=== PATIENT | female | born 1940 | race Caucasian/White ===

== ENCOUNTER 2017-06-10 15:57 | Inpatient (IN) ==
[2017-06-10] MEDS ORDERED: Ondansetron 4 MG/2 ML VIAL IVP ONE ×2 (16:15→20:35)
[2017-06-10] MEDS ORDERED: Ondansetron 4 MG/2 ML VIAL ONE (16:15)
--- NOTE | 2017-06-10 16:52 | Emergency Department Note ---
Disposition Clinical Impression: Colitis Sepsis Qualifiers: Sepsis type: sepsis due to unspecified organism Qualified Code(s): A41.9 - Sepsis, unspecified organism Disposition: Admitted As Inpatient Condition: Critical Referrals: NONE,PCP [Primary Care Provider] - Forms: ED Satisfaction Letter Time of Disposition: 23:27 General Adult HPI - General Chief complaint: ED Syncope Stated complaint: Syncope,Vomiting Time Seen by Provider: 06/10/17 16:10 Source: patient, EMS Mode of arrival: EMS Limitations: no limitations Nursing Notes Reviewed: Yes Vital Signs Reviewed: Yes - History of Present Illness HPI Narrative: Patient is a 76-year-old female with a past medical history of stomach cancer requiring gastrectomy, diabetes, hypertension and renal disease presenting to the department for syncopal episode with unresponsiveness that happened prior to arrival to the ED. Patient was shopping at [employer] and she just got done having dinner at [employer] when she started having nausea, vomiting and abdominal pain. Within that timeframe of nausea and vomiting which was the food that she just eaten, she had a syncopal episode where she became unresponsive and should EMS was called and the patient was brought here. Most of the history was obtained from the patient's he does have a baseline dementia, and the patient herself was able to answer some of my questions on arrival. Her states that the patient has done this multiple times in the past and does not know why this happens. At this time the patient is mainly complaining of nausea, vomiting and lower abdominal pain. Pain Scale: 0 - Related Data Home Medications Medication Instructions Recorded Confirmed Amlodipine Besylate 10 mg PO DAILY 06/10/17 06/10/17 Aspirin Enteric Coated [Aspirin EC] 81 mg PO DAILY 06/10/17 06/10/17 Atorvastatin [Lipitor] 40 mg PO HS 06/10/17 06/10/17 Carvedilol [Carvedilol] 12.5 mg PO BID 06/10/17 06/10/17 Glucosamine/D3/Boswellia Estephanie 1 each PO DAILY 06/10/17 06/10/17 [Osteo Bi-Flex Tablet] Lisinopril/Hydrochlorothiazide 1 each PO DAILY 06/10/17 06/10/17 [Zestoretic 10-12.5 mg Tablet] Omeprazole [PriLOSEC] 20 mg PO DAILY 06/10/17 06/10/17 Repaglinide [Prandin] 1 mg PO BID 06/10/17 06/10/17 Tizanidine HCl [Tizanidine HCl] 2 mg PO TID PRN 06/10/17 06/10/17 Tramadol HCl [Ultram] 50 mg PO QID PRN 06/10/17 06/10/17 Allergies Allergy/AdvReac Type Severity Reaction Status Date / Time sitagliptin [From Juluv] Allergy See Verified 06/10/17 18:22 Comments Review of Systems: Constitutional: No fever Vision: No blurred vision ENT: No rhinorrhea Respiratory: No cough Cardiac: No chest pain Allergic: No allergies : No dysuria GI: No blood in stool, no diarrhea. Positive for nausea and vomiting Hematologic: No bruising Dermatologic: No skin rash Musculoskeletal: No pain in the extremities Neuro: No numbness of the extremities All systems ED: reviewed and negative except as stated. Review of Systems: As Per HPI Past Medical History - Past Medical History Attestation: Yes The following information was validated with the patient. Medical history: Reports: cancer, diabetes, hypertension, renal disease Psychiatric history: Reports: no psych history - Social History Smoking Status: Former smoker Alcohol use: Reports: none Drug use: Reports: none Physical Exam CONSTITUTIONAL: Ill-appearing; A&O X3, in mild apparent distress. HEAD: Normocephalic; atraumatic. No delgado sign, raccoon eyes or evidence of CSF drainage EYES: PERRL, EOMI, no scleral icterus EARS: No hemotympanum or TM rupture, no otorrhea NECK: No tracheal deviation, JVD, or hematoma. Palpation of the posterior cervical spine reveals no tenderness NOSE: The nose is normal in appearance without rhinorrhea, epistaxis, or septal hematoma. MOUTH: Normal with intact dentition CHEST: no chest tenderness with palpation RESP: Normal chest excursion with respiration, no paradoxical motion, subcutaneous emphysema. The breath sounds are clear and equal bilaterally CARD: bradycardic, regular rhythm, without murmurs, rub or gallop ABD: No distention, ecchymosis, abrasions. Non-tender, soft, without rigidity , rebound or guarding PELVIS: No laxity or tenderness with palpation or compression EXT: Good ROM without tenderness, deformity. Pulses 2+ in 4 extremities SKIN: Normal for age and race; warm and dry; no apparent lesions, not pale or diaphoretic - General Limitations: no limitations General appearance: alert Course Course Narrative: Patient is a 76-year-old female with a past medical history of stomach cancer status post gastrectomy, renal disease, and history of syncopal episodes similar to presenting by squad. On arrival patient's vitals showed HR71, RR18, BP 106/59 and afebril satting at 94% on RA. Patient was noted to be unresponsive by squad however on arrival the patient is arousable and she is able to answer my questions. Patient is unable to give me all the information of the incident that happened today having active nausea and vomiting on exam. Plan for this patient is to do imaging of her head her back or abdomen and her chest to rule out any trauma or injuries, pulmonary embolisms, abdominal etiologies for the patient's symptoms. Also ordered lab work including cardiac labs and abdominal labs. Plan is to treat the patient with normal saline for blood pressure support. I also ordered stool cultures due to her diarrhea, however she denies any recent antibiotic use or hospitalizations. - Reevaluation(s) Reevaluation #1: Patient blood pressure was 70/50's recheck showed 97/59. Patient remains alert, denies any pain. She had two episodes of diarrhea that were nonbloody. States she is cold. Heading to CT now. Time: 17:57 Reevaluation #2: Patient's blood pressure drops to 90s/70 and comes back up to 100's/70's. Unsure if this is due to the patient's blood pressure cuff for her due to her being symptomatic, plan as a starter on 2 L of normal saline bolus. I also ordered blood cultures and urine cultures. I also added on antibiotics broad- spectrum coverage. I do not think the patient is septic. I am waiting for imaging to return to determine the cause of her symptoms. However, I will be preemptive and start the sepsis workup. Patient's lactate was also found to be 5.0. Vancomycin and zosyn were started. Time: 18:51 Reevaluation #3: Patient is having bloody bowel movements at this time. Calling radiology for CT read. Time: 20:32 Additional Reevaluation(s): Surgeon is at bedside.Case with the surgeon. He states that he is not convinced that this is ischemic colitis at this time. He states he likes admit the patient to ICU, trend lactates and continue antibiotic therapy for what appears to be infectious colitis. Other evaluations of the patient she does appear to be improving symptomatically. She still having diarrhea, however she sitting up in bed she is alert and oriented 3 she is feeling improved. I discussed with her the plan to admit her to the hospital for further treatment and evaluation and she agrees with this plan. Vital Signs Temperature 97.5 F L 06/10/17 15:59 Pulse Rate 71 06/10/17 15:59 Respiratory Rate 18 06/10/17 15:59 Blood Pressure 106/59 06/10/17 15:59 O2 Sat by Pulse Oximetry 94 06/10/17 15:59 Temperature 97.5 F L 06/10/17 15:59 Pulse Rate 53 06/10/17 23:18 Respiratory Rate 18 06/10/17 23:18 Blood Pressure 100/60 06/10/17 23:18 O2 Sat by Pulse Oximetry 96 06/10/17 23:18 Oxygen Delivery Oxygen Delivery Nasal Cannula Medical Decision Making - Medical Records Medical records reviewed: Yes I reviewed the patient's medical records. - Lab Data Lab results reviewed: Yes I reviewed the patient's lab results. Result diagrams: 06/10/17 16:35 06/10/17 16:35 Lab Results 06/10/17 06/10/17 06/10/17 Range/Units 16:07 16:35 16:35 WBC 11.2 H (4.3-11.1) K/mcL RBC 4.51 (3.82-4.97) M/mcL Hgb 13.5 (11.5-15.4) g/dL Hct 39.7 (35.3-44.9) % MCV 88.0 (83.0-100.0) fL MCH 29.9 (28.0-33.3) pg MCHC 34.0 (31.6-35.5) g/dL RDW 12.2 (11.5-14.5) % Plt Count 165 (140-400) K/mcL MPV 10.0 (9.4-12.4) fL Immature Gran % 0.6 (0-4) % Seg Neutrophils % 63.5 % Lymphocytes % 31.2 % Monocytes % 2.3 % Eosinophils % 2.0 % Basophils % 0.4 % Neutrophils # 7.1 (1.6-8.9) K/mcL Lymphocytes # 3.5 (0.6-4.6) K/mcL Monocytes # 0.3 (0.0-1.3) K/mcL Eosinophils # 0.2 (0.0-0.6) K/mcL Basophils # 0.0 (0.0-0.2) K/mcL Sodium 135 L (136-145) mEq/L Potassium 4.1 (3.5-4.5) mEq/L Chloride 103 (98-109) mEq/L Carbon Dioxide 18 L (19-29) mEq/L BUN 29 H (7-20) mg/dL Creatinine 1.52 H (0.57-1.11) mg/dL Est GFR ( Amer) 40 L (> 60) Est GFR (Non-Af Amer) 33 L (> 60) BUN/Creatinine Ratio 19 (6-26) Glucose 233 H (70-99) mg/dL POC Glucose 257 H (58-89) Calculated Osmolality 293 (280-300) Lactic Acid (0.5-2.2) mmol/L Calcium 8.9 (8.6-10.8) mg/dL Total Bilirubin 0.3 (0.2-1.2) mg/dL AST 19 (5-34) Units/L ALT 11 (0-55) Units/L Alkaline Phosphatase 91 (38-126) Units/L Troponin I (0-0.03) ng/mL Serum Total Protein 6.4 (6.0-8.3) g/dL Albumin 3.3 L (3.5-5.0) g/dL Globulin 3.1 (2.4-3.5) g/dL Albumin/Globulin Ratio 1.1 (1.1-2.2) Lipase 79 H (8-78) Units/L Urine Color (Yellow) Urine Clarity (Clear) Urine pH (5.0-8.0) pH Units Ur Specific [place] (1.010-1.025) Urine Protein (Neg-Trace) mg/dL Urine Glucose (UA) (Normal) mg/dL Urine Ketones (Negative) mg/dL Urine Blood (Negative) Urine Nitrite (Negative) Urine Bilirubin (Negative) Urine Urobilinogen (Normal) mg/dL Ur Leukocyte Esterase (Negative) Specimen Rejected Blood Type Antibody Screen 06/10/17 06/10/17 06/10/17 Range/Units 16:35 17:05 18:00 WBC (4.3-11.1) K/mcL RBC (3.82-4.97) M/mcL Hgb (11.5-15.4) g/dL Hct (35.3-44.9) % MCV (83.0-100.0) fL MCH (28.0-33.3) pg MCHC (31.6-35.5) g/dL RDW (11.5-14.5) % Plt Count (140-400) K/mcL MPV (9.4-12.4) fL Immature Gran % (0-4) % Seg Neutrophils % % Lymphocytes % % Monocytes % % Eosinophils % % Basophils % % Neutrophils # (1.6-8.9) K/mcL Lymphocytes # (0.6-4.6) K/mcL Monocytes # (0.0-1.3) K/mcL Eosinophils # (0.0-0.6) K/mcL Basophils # (0.0-0.2) K/mcL Sodium (136-145) mEq/L Potassium (3.5-4.5) mEq/L Chloride (98-109) mEq/L Carbon Dioxide (19-29) mEq/L BUN (7-20) mg/dL Creatinine (0.57-1.11) mg/dL Est GFR ( Amer) (> 60) Est GFR (Non-Af Amer) (> 60) BUN/Creatinine Ratio (6-26) Glucose (70-99) mg/dL POC Glucose (58-89) Calculated Osmolality (280-300) Lactic Acid (0.5-2.2) mmol/L Calcium (8.6-10.8) mg/dL Total Bilirubin (0.2-1.2) mg/dL AST (5-34) Units/L ALT (0-55) Units/L Alkaline Phosphatase (38-126) Units/L Troponin I 0.00 (0-0.03) ng/mL Serum Total Protein (6.0-8.3) g/dL Albumin (3.5-5.0) g/dL Globulin (2.4-3.5) g/dL Albumin/Globulin Ratio (1.1-2.2) Lipase (8-78) Units/L Urine Color Yellow (Yellow) Urine Clarity Cloudy A (Clear) Urine pH 7.0 (5.0-8.0) pH Units Ur Specific [place] 1.022 (1.010-1.025) Urine Protein Negative (Neg-Trace) mg/dL Urine Glucose (UA) Normal (Normal) mg/dL Urine Ketones Negative (Negative) mg/dL Urine Blood Negative (Negative) Urine Nitrite Negative (Negative) Urine Bilirubin Small H (Negative) Urine Urobilinogen Normal (Normal) mg/dL Ur Leukocyte Esterase Moderate H (Negative) Specimen Rejected Not Liquid Blood Type Antibody Screen 06/10/17 06/10/17 06/10/17 Range/Units 18:15 20:47 21:09 WBC (4.3-11.1) K/mcL RBC (3.82-4.97) M/mcL Hgb (11.5-15.4) g/dL Hct (35.3-44.9) % MCV (83.0-100.0) fL MCH (28.0-33.3) pg MCHC (31.6-35.5) g/dL RDW (11.5-14.5) % Plt Count (140-400) K/mcL MPV (9.4-12.4) fL Immature Gran % (0-4) % Seg Neutrophils % % Lymphocytes % % Monocytes % % Eosinophils % % Basophils % % Neutrophils # (1.6-8.9) K/mcL Lymphocytes # (0.6-4.6) K/mcL Monocytes # (0.0-1.3) K/mcL Eosinophils # (0.0-0.6) K/mcL Basophils # (0.0-0.2) K/mcL Sodium (136-145) mEq/L Potassium (3.5-4.5) mEq/L Chloride (98-109) mEq/L Carbon Dioxide (19-29) mEq/L BUN (7-20) mg/dL Creatinine (0.57-1.11) mg/dL Est GFR ( Amer) (> 60) Est GFR (Non-Af Amer) (> 60) BUN/Creatinine Ratio (6-26) Glucose (70-99) mg/dL POC Glucose (58-89) Calculated Osmolality (280-300) Lactic Acid 5.0 H* 4.1 H* (0.5-2.2) mmol/L Calcium (8.6-10.8) mg/dL Total Bilirubin (0.2-1.2) mg/dL AST (5-34) Units/L ALT (0-55) Units/L Alkaline Phosphatase (38-126) Units/L Troponin I (0-0.03) ng/mL Serum Total Protein (6.0-8.3) g/dL Albumin (3.5-5.0) g/dL Globulin (2.4-3.5) g/dL Albumin/Globulin Ratio (1.1-2.2) Lipase (8-78) Units/L Urine Color (Yellow) Urine Clarity (Clear) Urine pH (5.0-8.0) pH Units Ur Specific [place] (1.010-1.025) Urine Protein (Neg-Trace) mg/dL Urine Glucose (UA) (Normal) mg/dL Urine Ketones (Negative) mg/dL Urine Blood (Negative) Urine Nitrite (Negative) Urine Bilirubin (Negative) Urine Urobilinogen (Normal) mg/dL Ur Leukocyte Esterase (Negative) Specimen Rejected Blood Type B POSITIVE Antibody Screen NEGATIVE - Radiology Data Radiology results reviewed: Yes I reviewed the patient's radiology results. Abdomen/Pelvis CTA 06/10/17 16:15 IMPRESSION: There is atherosclerotic disease involving the thoracic and abdominal/pelvic aorta with no evidence of dissection. There is mild ectasia of the infrarenal abdominal aorta. No acute arterial injury. There is a low-attenuation likely cystic nodule of the left lobe of the thyroid measuring up to 5.6 cm with substernal extension. Mural thickening involving the distal transverse colon, splenic flexure, descending colon and rectosigmoid colon consistent with a nonspecific colitis. Ischemic colitis should be considered. Clinical correlation is recommended. Managing Incidental Thyroid Nodule Detected at CT or MRI or US1. Further evaluation by thyroid Ultrasound recommended for these incidental nodules:Patient Age 18 years or less - Any nodule.Patient Age 19-34 years old - Nodule 1 cm in size or greaterPatient Age 35 years or more - Nodule 1.5 cm in size or greater2. Follow up thyroid ultrasound also recommend in these scenarios-Solitary nodule with high risk imaging features (locally invasive nodule or suspicious lymph nodes)-Any nodule in a heterogeneous enlarged thyroid gland3. NO further imaging is recommended in the following scenarios-No f/u imaging is recommended for ITNs not meeting the above criteria.-No US or f/u recommended for ITNs without high risk features in pts. with limited life expectancy or significant co-morbidities, unless clinically warranted.Note: These recommendations do not apply to pts. w/ increased risk for thyroid cancer or pts. with symptomatic thyroid disease. Recomm endations for f/u of Incidental Thyroid Nodules (ITN) found on CT, MR, NM and Extrathyroidal US are based upon the ACR white paper and [employer]ada 3-tiered system for managing ITNs:J Am Cora Radiol. 2015 Aug;12(2): 143-50 D/ / Hussein Holcomb MD / Hussein Holcomb MD Interpreting Provider: Hussein Holcomb MD Cervical Spine CT 06/10/17 16:15 IMPRESSION: No acute abnormality of the cervical spine. Advanced multilevel degenerative disc disease, most pronounced from C4-C6 with areas severe left and moderate to severe right foraminal narrowing. Mild canal stenosis at C5-C6. Marked enlargement of the left thyroid lobe. RECOMMENDATIONS: Managing Incidental Thyroid Nodule Detected at CT or MRI or US 1. Further evaluation by thyroid Ultrasound recommended for these incidental nodules: Patient Age 18 years or less - Any nodule. Patient Age 19-34 years old - Nodule 1 cm in size or greater Patient Age 35 years or more - Nodule 1.5 cm in size or greater 2. Follow up thyroid ultrasound also recommend in these scenarios -Solitary nodule with high risk imaging features (locally invasive nodule or suspicious lymph nodes) -Any nodule in a heterogeneous enlarged thyroid gland 3. NO further imaging is recommended in the following scenarios -No f/u imaging is recommended for ITNs not meeting the above criteria. -No US or f/u recommended for ITNs without high risk features in pts. with limited life expectancy or significant co-morbidities, unless clinically warranted. Note: These recommendations do not apply to pts. w/ increased risk for thyroid cancer or pts. with symptomatic thyroid disease. Recommendations for f/u of Incidental Thyroid Nodules (ITN) found on CT, MR, NM and Extrathyroidal US are based upon the ACR white paper and Estrada 3-tiered system for managing ITNs: J Am Cora Radiol. 2015 Aug;12(2): 143-50 D/ / 06/10/2017 21:10:24 Rogelio Herrmann / salma Interpreting Provider: Rogelio Herrmann Chest CTA 06/10/17 16:15 IMPRESSION: There is atherosclerotic disease involving the thoracic and abdominal/pelvic aorta with no evidence of dissection. There is mild ectasia of the infrarenal abdominal aorta. No acute arterial injury. There is a low-attenuation likely cystic nodule of the left lobe of the thyroid measuring up to 5.6 cm with substernal extension. Mural thickening involving the distal transverse colon, splenic flexure, descending colon and rectosigmoid colon consistent with a nonspecific colitis. Ischemic colitis should be considered. Clinical correlation is recommended. Managing Incidental Thyroid Nodule Detected at CT or MRI or US1. Further evaluation by thyroid Ultrasound recommended for these incidental nodules:Patient Age 18 years or less - Any nodule.Patient Age 19-34 years old - Nodule 1 cm in size or greaterPatient Age 35 years or more - Nodule 1.5 cm in size or greater2. Follow up thyroid ultrasound also recommend in these scenarios-Solitary nodule with high risk imaging features (locally invasive nodule or suspicious lymph nodes)-Any nodule in a heterogeneous enlarged thyroid gland3. NO further imaging is recommended in the following scenarios-No f/u imaging is recommended for ITNs not meeting the above criteria.-No US or f/u recommended for ITNs without high risk features in pts. with limited life expectancy or significant co-morbidities, unless clinically warranted.Note: These recommendations do not apply to pts. w/ increased risk for thyroid cancer or pts. with symptomatic thyroid disease. Recomm endations for f/u of Incidental Thyroid Nodules (ITN) found on CT, MR, NM and Extrathyroidal US are based upon the ACR white paper and E[employer]ada 3-tiered system for managing ITNs:J Am Cora Radiol. 2015 Aug;12(2): 143-50 D/ / Hussein Holcomb MD / Hussein Holcomb MD Interpreting Provider: Hussein Holcomb MD Head CT 06/10/17 16:15 IMPRESSION: No acute traumatic intracranial abnormality. D/ / Issac Trejo MD / Issac Trejo MD Interpreting Provider: Issac Trejo MD - EKG Data EKG #1 EKG attestation: Yes I reviewed and interpreted this EKG. EKG results narrative: EKG done at 1609 turbid by me shows sinus rhythm at a rate of 64 bpm. EKG has normal access, NH is 161, QRS is 80, QT is 406, QTc is 415 these are within normal limits. Patient is suspicious wearing leads and lead to 3 and aVF with the start of ST elevation. We will repeat EKG. EKG #2 EKG attestation: Yes I reviewed and interpreted this EKG. EKG results narrative: EKG done at 16:21 shows sinus rhythm at 60 bpm. EKG is normal axis, normal intervals, normal QT and QTC. Repeat EKG does not show any ST elevations or depressions or Q waves. No acute ischemia appreciated. This is unchanged from her acute EKG done at 16:09. Critical Care Time Attestation: I spent greater than 65 minutes of critical care time resuscitating this acutely ill patient suffering from intermittent hypotension requiring IV fluid resuscitation as well as possible sepsis versus ischemic colitis. Patient required extensive bedside monitoring and intervention. This was excluding billable procedures. Attestation Statement - Attestation Attestation: I examined this patient and my medical decision-making was reviewed with the Resident Physician. I agree with the documented findings, disposition and treatment plan as described except to the extent set forth below. Possible ischemic versus infectious colitis. Multiple bowel movements with gross hematochezia. Patient has intermittent and labile blood pressures. They did respond to IV fluid resuscitation. Lactate improved with IV fluids however not as well as I would expect. Emergent surgical consultation available at bedside. No operative intervention at this time. We will continue to trend lactate, and initiate antibiotic therapy for possible infectious causes., Admitted to intensive care unit for monitoring of blood pressure. Discussed case with family member. Will admit for further evaluation to intensive care unit.
[2017-06-10 16:54] LABS: Basophils % 0.4 %; Eosinophils # 0.2 K/mcL (0.0-0.6); Hematocrit 39.7 % (35.3-44.9); Hemoglobin 13.5 g/dL (11.5-15.4); Immature Granulocytes % 0.6 % (0-4); Lymphocytes # 3.5 K/mcL (0.6-4.6); Lymphocytes % 31.2 %; Mean Corpuscular Hemoglobin 29.9 pg (28.0-33.3); Monocytes # 0.3 K/mcL (0.0-1.3); Monocytes % 2.3 %; Neutrophils # 7.1 K/mcL (1.6-8.9); Platelet Count 165 K/mcL (140-400); Red Blood Count 4.51 M/mcL (3.82-4.97); Red Cell Distribution Width 12.2 % (11.5-14.5); Segmented Neutrophils % 63.5 %
[2017-06-10 17:08] LABS: Albumin 3.3 g/dL (3.5-5.0); Albumin/Globulin Ratio 1.1 (1.1-2.2); Calcium 8.9 mg/dL (8.6-10.8); Globulin 3.1 g/dL (2.4-3.5); Potassium 4.1 mEq/L (3.5-4.5); Total Protein 6.4 g/dL (6.0-8.3)
[2017-06-10 17:15] LABS: Bilirubin,Urine Small (Negative); Blood,Urine Negative (Negative); Clarity,Urine Cloudy (Clear); Color,Urine Yellow (Yellow); Glucose,Urine (UA) Normal (Normal); Ketones,Urine Negative (Negative); Leukocyte Esterase,Urine Moderate (Negative); Nitrite,Urine Negative (Negative); Protein,Urine Negative (Neg-Trace); Specific Gravity,Urine 1.022 (1.010-1.025); Urobilinogen,Urine Normal (Normal)
[2017-06-10 17:18] LABS: Bilirubin,Total 0.3 mg/dL (0.2-1.2)
[2017-06-10] MEDS ORDERED: 0.9 % Sodium Chloride 2,000 ML ONE (17:42)
[2017-06-10] MEDS ORDERED: 0.9 % Sodium Chloride 1,000 ML IVC ONE ×2 (17:42→17:43)
[2017-06-10] MEDS ORDERED: Piperacillin/Tazobactam 3.375 GM in D5% in Water 50 ML IVPB ONE (18:50)
[2017-06-10] MEDS ORDERED: Vancomycin 1,000 MG in D5% in Water 250 ML IVPB ONE (18:50)
[2017-06-10] MEDS: 0.9 % Sodium Chloride 1,000 ML IVC SCH (20:39)
[2017-06-10] MEDS ORDERED: MetroNIDAZOLE 500 MG/100 ML 500 MG/100 ML BAG IVPB ONE (20:55)
[2017-06-10] MEDS ORDERED: 0.9 % Sodium Chloride 1,000 ML IVC SCH (22:00)
--- NOTE | 2017-06-11 00:20 | Internal Med History&Physical ---
<Killian Frost - Last Filed: 06/11/17 02:57> Date of Encounter: 06/11/17 Time of Encounter: 00:20 Assessment and Plan (1) Colitis Current visit: Yes Status: Acute - 5-10 episodes of grossly bloody diarrhea since onset. - CT scan showed distal transverse colon to proximal descending colon colitis. - personal injury legal assistant surgeon consult, does not believe this to be ischemic colitis. Trending lactic acid q4 hours - Most likely etiology of infectious. Will continue zosyn and flagyl. - H/H stable at 13.5/39.7. Will monitor closely. Type and screen performed in ED - C. diff toxin negative. - Pt appears to be improving since presentation. - Fluids at 125mL/hr, zofran, clear liquid diet as tolerated. - GI consulted, appreciate recommendations. (2) Renal failure Current visit: Yes Status: Acute - BUN/Cr of 29/1.52. - unknown baseline. No previous records. Pt does not admit to kidney disease. - Likely a result of chronic diabetes. Will continue with IVF, avoid nephrotoxic drugs. Qualifiers: Renal failure chronicity: unspecified chronicity Qualified Code(s): N19 - Unspecified kidney failure (3) Diabetes mellitus type 2 in nonobese Current visit: Yes Status: Chronic - Non insulin dependent. - No A1c to compare. BS in ED of 257, improved to 156. - Will give SSI. A1c pending. (4) DVT prophylaxis Current visit: Yes Status: Acute - SCDs. Holding anticoagulation in the setting of gross hematochezia. Internal Medicine - H&P: HPI Chief complaint: Bloody diarrhea Admitted From: Emergency Dept Plans for Post Hospital Care: Home History of present illness: Ms. Whyte is a 76 year old female who presents to the emergency room with a chief complaint of bloody diarrhea since this afternoon. She states she had a similar episode approximately 1 year ago and was treated at [facility] for some form of colitis which involved taking a large antibiotic pill. She states that this afternoon after eating a meal at [employer], she was walking in [place] when she began to feel some abdominal discomfort and could not make it to the restroom in time. She states that she had a large bloody bowel movement and that her memory is unclear about the surrounding events. Family was not present at bedside during time of interview. She states that she has had somewhere between 5 and 10 bowel movements since this afternoon, all of them bloody in nature. She does have a problem with chronic constipation and takes over-the- counter laxatives once a week to relieve this. She does admit to some mild abdominal pain in the epigastric and lower left quadrant, however admits that this might be due to soreness. She also admits to nausea and bilious vomiting without evidence of blood during this time, approximately 5-8 episodes. She denies any sick contacts, recent travel, strange foods. Denies any symptoms of chest pain, shortness of breath, dysuria, fevers, chills. She does admit to some diaphoresis, dizziness, confusion when these episodes come on. In the emergency department, vital signs significant for respiratory rate of 20 , intermittent hypotension. After discussion with emergency resident, he notes that patient becomes hypotensive after having a large bowel movement and then recovers spontaneously and with the use of fluids. Lab results significant for white blood cell count of 11.2, BUN/creatinine of 29/1.52, lactic acid of 5.0, lipase minimally elevated at 79. C. difficile toxin was negative. CT scans of head, chest, abdomen were performed. Showed signs of diffuse inflammation in the transverse colon extending to the splenic flexure possibly suggesting colitis. Surgery was consulted in the ED, on-call surgeon was not convinced of ischemic colitis. He recommended trending lactic acids and medical management at this time. Past Med Surg Social Fam HX - Past Medical History Medical history: cancer, diabetes, hypertension, renal disease Psychiatric history: no psych history - Social History Smoking Status: Former smoker Alcohol use: none Drug use: none Internal Medicine - H&P: Meds Amlodipine Besylate 10 mg PO DAILY 06/10/17 [History] Aspirin Enteric Coated [Aspirin EC] 81 mg PO DAILY 06/10/17 [History] Atorvastatin [Lipitor] 40 mg PO HS 06/10/17 [History] Carvedilol [Carvedilol] 12.5 mg PO BID 06/10/17 [History] Glucosamine/D3/Boswellia Estephanie [Osteo Bi-Flex Tablet] 1 each PO DAILY 06/10/17 [ History] Lisinopril/Hydrochlorothiazide [Zestoretic 10-12.5 mg Tablet] 1 each PO DAILY [History] Omeprazole [PriLOSEC] 20 mg PO DAILY 06/10/17 [History] Repaglinide [Prandin] 1 mg PO BID 06/10/17 [History] Tizanidine HCl [Tizanidine HCl] 2 mg PO TID PRN 06/10/17 [History] Tramadol HCl [Ultram] 50 mg PO QID PRN 06/10/17 [History] 3 Allergy/AdvReac Type Severity Reaction Status Date / Time sitagliptin [From Jul] Allergy See Verified 06/10/17 18:22 Comments All Systems PM: A 10-system review of systems was performed and is negative for pertinent findings except as documented above in the HPI. - Constitutional Constitutional: chills, excessive sweating, lethargy, no fatigue, no fever(s) - Cardiovascular Cardiovascular ROS IM: diaphoresis, lightheadedness, no chest pain, no dyspnea, no dyspnea on exertion, no edema, no palpitations - Respiratory Respiratory: no dyspnea, no hemoptysis, no dyspnea on exertion - Gastrointestinal Gastrointestinal: abdominal pain, change in bowel habits, change in stool character, diarrhea, hematochezia, loose stools, nausea, vomiting, no coffee ground emesis, no hematemesis, no melena - Genitourinary Genitourinary: no dysuria - Musculoskeletal Musculoskeletal ROS IM: no muscle weakness - Neurological Neurological ROS: no dizziness, no numbness, no tingling, no weakness - Constitutional Vitals: Temp Pulse Resp BP Pulse Ox 97.5 F L 53 16 107/59 96 06/10/17 15:59 06/10/17 23:18 06/11/17 00:01 06/11/17 00:01 06/10/17 23:18 Exam: Gen.: Vitals noted. No acute distress. AAOx3. Exhibiting one episode of emesis during time of interview, bilious HEENT: PERRL, oropharynx clear, Normocephalic, atraumatic, moist mucous membranes Cardiac: RRR, no murmur, +S1/S2 Pulmonary: CTA bilaterally, no wheezes, rales or rhonchi, equal chest expansion Abdomen: soft, mildly tender to palpation in epigastric and lower left quadrant , BS noted, positive rebound tenderness. No pain out of proportion to physical exam MSK: ROM intact, no joint swelling noted Extremities: no BLE edema, nontender calf, no cyanosis or clubbing Neuro: A&Ox3, moves all extremities, no focal deficits Psych: Appropriate mood and behavior Internal Med - H&P Results - Labs CBC & Chem 7: 06/11/17 00:54 06/11/17 00:54 <Lisandro Negrete T - Last Filed: 06/11/17 03:15> Date of Encounter: 06/11/17 Assessment and Plan (1) Lactic acidosis Current visit: Yes Status: Acute (2) Sepsis Current visit: Yes Status: Acute Qualifiers: Sepsis type: sepsis due to unspecified organism Qualified Code(s): A41.9 - Sepsis, unspecified organism (3) Renal failure Current visit: Yes Status: Acute Qualifiers: Renal failure chronicity: unspecified chronicity Qualified Code(s): N19 - Unspecified kidney failure (4) Colitis Current visit: Yes Status: Acute (5) Diabetes mellitus type 2 in nonobese Current visit: Yes Status: Chronic Internal Medicine - H&P: HPI History of present illness: Ms. Whyte is a 76 year old female All Systems PM: A 10-system review of systems was performed and is negative for pertinent findings except as documented above in the HPI. - Constitutional Vitals: Temp Pulse Resp BP Pulse Ox 97.2 F L 61 20 137/54 97 06/11/17 01:00 06/11/17 02:00 06/11/17 02:00 06/11/17 02:00 06/11/17 02:00 Internal Med - H&P Results - Labs CBC & Chem 7: 06/11/17 00:54 06/11/17 00:54 Labs: Short CBC 06/11/17 Range/Units 00:54 WBC 16.1 H (4.3-11.1) K/mcL Hgb 11.9 D (11.5-15.4) g/dL Hct 35.1 L (35.3-44.9) % Plt Count 216 (140-400) K/mcL Neutrophils # 14.3 H (1.6-8.9) K/mcL BMP 06/11/17 00:54 Sodium 138 Potassium 3.6 Chloride 109 Carbon Dioxide 18 L BUN 31 H Creatinine 1.30 H Glucose 184 H Calcium 8.0 L - Attending Attestation I have independently seen and examined this patient on 06/11/17 and discussed plan of care with resident physician and patient Presented with syncope and hypotension following bloody diarrhea episodes, no fever or chills, work up revealed lactic acidosis, renal failure, evidence of colitis on CT Scan, possibly infectious, abdomen is benign Blood pressure and lactic acidosis is improving with IVF hydration, No new complains at time of eval, no further bloody BM Physical exam: VSS, AAOX3, not in any form of distress,chest is CTAB, abdomen is soft and not tender, no guarding, no rebound, bowel sounds present in all quadrants, no pedal edema, labs and Imaging reviewed. Agree with IVF/antibiotics/GI eval/Monitor Hb. Renal USS. Follow urine culture. ICU monitoring till BP is stable. C.diff is negative Rest of details as in resident physician's documentation
[2017-06-11] MEDS ORDERED: Naloxone 0.4 MG/ML INJ IVP PRN (00:44)
[2017-06-11] MEDS ORDERED: Acetaminophen 325 MG TABLET PO PRN ×2 (00:44→22:39)
[2017-06-11] MEDS ORDERED: *HR* HYDROcodone/Acet 5/325 mg TABLET PO PRN ×2 (00:44→22:39)
[2017-06-11] MEDS ORDERED: Ondansetron 4 MG/2 ML VIAL IVP PRN ×2 (00:44→22:40)
[2017-06-11] MEDS ORDERED: *HR* Morphine 2 MG/ML SYRINGE IVP PRN ×2 (00:44→22:40)
[2017-06-11] MEDS ORDERED: D5% in Water 1,000 ML IVC PRN ×2 (00:45→22:38)
[2017-06-11] MEDS ORDERED: *HR* Dextrose 50 % in Water (Syg) 50 ML SYRINGE IVP PRN ×2 (00:45→22:38)
[2017-06-11] MEDS ORDERED: Dextrose Gel 15 GM PO PRN ×4 (00:45→22:38)
[2017-06-11 01:10] LABS: Basophils % 0.2 %; Eosinophils % 0.1 %; Hematocrit 35.1 % (35.3-44.9); Immature Granulocytes % 0.9 % (0-4); Mean Corpuscular HGB Conc 33.9 g/dL (31.6-35.5); Mean Corpuscular Hemoglobin 30.4 pg (28.0-33.3); Mean Corpuscular Volume 89.5 fL (83.0-100.0); Mean Platelet Volume 9.7 fL (9.4-12.4); Monocytes % 6.3 %; Platelet Count 216 K/mcL (140-400); Red Blood Count 3.92 M/mcL (3.82-4.97); Red Cell Distribution Width 12.4 % (11.5-14.5); Segmented Neutrophils % 88.5 %
[2017-06-11 01:12] LABS: Lymphocytes # 0.6 K/mcL (0.6-4.6); Neutrophils # 14.3 K/mcL (1.6-8.9)
[2017-06-11 01:13] LABS: Hemoglobin 11.9 g/dL (11.5-15.4)
[2017-06-11 01:17] LABS: Potassium 3.6 mEq/L (3.5-4.5)
[2017-06-11 01:25] LABS: INR 1.2
[2017-06-11 01:28] LABS: Activated Partial Thrombo Time 26.3 Seconds (26.0-36.0)
[2017-06-11 01:31] LABS: Platelet Estimate Normal (Normal)
[2017-06-11 01:35] LABS: Hemoglobin A1C 5.7 %
[2017-06-11] MEDS: 0.9 % Sodium Chloride 1,000 ML IVC SCH (03:14)
[2017-06-11] MEDS: MetroNIDAZOLE 500 MG/100 ML 500 MG/100 ML BAG IVPB SCH ×3 (06:04→18:54)
[2017-06-11] MEDS ORDERED: Piperacillin/Tazobactam 3.375 GM in D5% in Water 50 ML IVPB SCH (08:00)
[2017-06-11] MEDS: Insulin LISPRO 300 UNITS/3 ML VIAL SQ SCH ×3 (08:30→18:32)
--- NOTE | 2017-06-11 09:11 | Event Note ---
Date of Encounter: 06/11/17 Time of Encounter: 08:45 76-year-old female with history of hypertension, diabetes presents with multiple episodes of near syncope and syncope along with bloody diarrhea and abdominal pain. Patient seen and examined at bedside. Feels better but continues to have some abdominal pain. Improving diarrhea. Chest-S1, S2 heard, regular rate and rhythm. Abdomen is soft and nondistended, tenderness in lower abdomen and left lower quadrant. CT abdomen/pelvis shows colitis in distal transverse up to rectosigmoid colon. Labs reviewed-worsening leukocytosis, 16.1 today, initial lactic acidosis, improved today, serum creatinine 1.3, hemoglobin A1c 5.7% Syncope-likely related to dehydration, diarrhea and colitis. Continue telemetry monitoring. Troponin noted to be negative, initial EKG showed sinus rhythm. Check 2-D echocardiogram. Colitis-infectious versus ischemic versus inflammatory. Continue empiric IV antibiotics-Rocephin and Flagyl. Hold Zosyn at this time. Surgery has been consulted by ER physician, less likely ischemic colitis. Serum lactate noted to be normal today. Follow-up GI evaluation. Continue bowel rest and IV hydration. Monitor electrolytes closely.
[2017-06-11] MEDS ORDERED: 0.9 % Sodium Chloride 1,000 ML IVC SCH (09:15)
--- NOTE | 2017-06-11 09:44 | Gastroenterology Consult Note ---
<Donaldo Card - Last Filed: 06/11/17 09:56> Date of Encounter: 06/11/17 Time of Encounter: 09:22 - Assessment and plan (1) Colitis Current Visit: Yes Status: Acute Assessment and plan: 76-year-old type II diabetic with described history of recurrent hemorrhagic colitis was admitted with hematochezia, hypotension and syncopal episode. Significant laboratory work: Elevated WBC count up to 16.1, initial lactic acid 5.0 currently 1.4, presenting hemoglobin 13.5 down to 11.9 currently, BUN 31. CT of the abdomen demonstrates mural thickening involving the distal transverse colon, splenic flexure, descending colon and rectosigmoid colon consistent with nonspecific colitis. The patient presents with CT findings of colitis, hematochezia and left upper quadrant tenderness. She does complain of previous recurrent episodes over the last several years and once required hospitalization at [facility] one year ago. Of significance she also had vital demonstrating hypotension upon presentation and associated with bowel movements indicating vasovagal involvement. She also has CT findings correlating with vascular calcification. Patient be consideration for ischemic colitis involving the mucosa, given the length of time and recurrent history this also could demonstrate ulcerative colitis and less likely to be bacterial colitis given the frequency of recurrence. Plan: - Nothing by mouth - We will benefit from EGD today - Bowel prep and colonoscopy tomorrow - ESR and CRP - Continue metronidazole and ciprofloxacin. (2) Diabetes mellitus type 2 in nonobese Current Visit: Yes Status: Chronic Assessment and plan: Patient is a history of type 2 diabetes, patient states that her hemoglobin A1c was well controlled and she is currently not taking any injectable insulin. - Continue close glucose monitoring (3) Lactic acidosis Current Visit: Yes Status: Acute Assessment and plan: Lactic acidosis is resolving, likely secondary to colitis versus ischemic colitis. Lactic acid level resolving. Plan as described above. - Time Spent With Patient Total time spent is greater than 50% in coordination of care (as documented) at patient's floor/unit and/or counseling patient: GI History of Present Illness - Data of Consult Consult date: 06/11/17 Requesting Physician: Sandra Mayers MD - Consult Narrative Reason for consult: gi bleed History of present illness: Ms. Whyte is a 76 year old female type II diabetic, GERD, colon polyps, partial gastrectomy secondary to gastric cancer was brought to the hospital by EMS after fainting at [employer]. She states that she was driving back from [place] and stopped at [employer] in [facility] when she started to develop abdominal discomfort aching pain with cramping and then felt she was going to pass out. She said she last remembers sitting in a chair at [employer] and then woke up in the ambulance on the way to the hospital. She states after coming to the hospital she had several bowel movements that were bloody associated with cramping pain. She said this is not the first time she has had these episodes and that they happen fairly regularly. She last had one 8 months ago and said this has been the longest period of not having an episode of bloody diarrhea associated with vomiting which is usually green or clear in color. She has been driving her to and from cancer treatments for prostate cancer over the last 8 months. Prior to the past 8 months she was having several episodes a year where she would have bright red blood associated with abdominal cramping and nausea and vomiting. She would usually take care of these episodes at home and they would resolve without medical attention. She does state that she was at [facility] in [place] roughly one year ago with a similar episode and she was provided 10 days of oral antibiotics and discharged home. She said they called colitis. She has a history of gastric cancer with a partial gastrectomy with slow recovery of her gastric function after. She states that everything is resolved and she is able to eat without difficulty currently. She states that she has had polyps with her previous colonoscopy and that might have been 5 years ago and she was due in September but she cannot remember if she had a colonoscopy then or if her had one at that time. She does not remember when her last endoscopy was but knows that she had 1 prior to her diagnosis of gastric cancer. She does not recall any family history of gastric cancers or colon cancer or colon polyps. She is a previous smoker but quit over 27 years ago and does not drink any alcohol or do any drugs. Currently she feels back to her normal state of health denies any discomfort or pain except a little bit of tenderness on examination. She denies any previous diagnosis of ulcerative colitis Crohn's disease or inflammatory bowel diseases. She does not take any chronic medications for these episodes of recurrent colitis. Colonoscopy: maybe 5 years ago EGD: Unknown, hx gastric cancer Past Med Surg Social Fam HX - Past Medical History Medical history: cancer, diabetes, hypertension, renal disease Psychiatric history: no psych history - Past Surgical History Surgical History: cancer surgery - Social History Smoking Status: Former smoker Alcohol use: none Drug use: none - Gastrointestinal Gastrointestinal: Present: abdominal pain, change in bowel habits, constipation , diarrhea, heartburn, hematochezia, melena, nausea, vomiting. Absent: bloating , coffee ground emesis, hematemesis - Constitutional Constitutional: no anorexia, no fatigue - EENT Nose, mouth and throat: Absent: dysphagia, hoarseness - Cardiovascular Cardiovascular ROS: Absent: chest pain, irregular heart rhythm, palpitations - Respiratory Respiratory IM: Absent: cough, dyspnea, hemoptysis - Genitourinary Genitourinary: Absent: change in color - Neurological ROS Neurological GI: Present: other (Syncopal episode) - Musculoskeletal Musculoskeletal ROS GI: Absent: back pain - Integumentary Integumentary GI: Absent: jaundice, pruritis, rash - Constitutional Vitals: Temp Pulse Resp BP Pulse Ox 97.6 F 81 24 135/52 97 06/11/17 07:46 06/11/17 08:00 06/11/17 06:00 06/11/17 06:00 06/11/17 06:00 General appearance: Present: cooperative, A&O X 3, pleasant, no acute distress Exam: General: Patient alert, awake, oriented 3, interactive, in no acute distress HEENT: Normocephalic, atraumatic, oral mucosa moist, uvula midline, neck supple trachea midline no palpable lymphadenopathy, no thyromegaly. Chest: Symmetric bilateral correlating with respiratory effort, effort nonlabored. Cardiac: Regular rate and rhythm, positive S1 and S2. no bruits appreciated bilateral carotids, Radial pulses 2+ bilateral, posterior tibial and dorsal pedal pulses 2+ bilateral. Respiratory: Clear to auscultation all lung [place] Abdomen: Soft, postsurgical scar, mild tenderness to palpation of the left upper quadrant, positive bowel sounds, no palpable masses appreciated on examination Extremities: Symmetric bilateral, bilateral lower extremities without erythema or edema patient moving all 4 extremities spontaneously. Neurologic: No focal deficits appreciated on examination. Face symmetric Results - Labs CBC & Chem 7: 06/11/17 00:54 06/11/17 00:54 Labs: Last Result Calcium 8.0 mg/dL (8.6-10.8) L 06/11/17 00:54 Troponin I 0.00 ng/mL (0-0.03) 06/10/17 16:35 Entire Visit Hgb 11.9 g/dL (11.5-15.4) D 06/11/17 00:54 Hct 35.1 % (35.3-44.9) L 06/11/17 00:54 PT 13.0 Seconds (9.4-12.1) H 06/11/17 00:54 Total Bilirubin 0.3 mg/dL (0.2-1.2) 06/10/17 16:35 AST 19 Units/L (5-34) 06/10/17 16:35 ALT 11 Units/L (0-55) 06/10/17 16:35 Lipase 79 Units/L (8-78) H 06/10/17 16:35 - ABG ABG results: PT/INR, D-dimer PT 13.0 Seconds (9.4-12.1) H 06/11/17 00:54 Consult Discharge Plan - Plan Referrals: NONE,PCP [Primary Care Provider] - <Alicia Grayson - Last Filed: 06/11/17 21:48> Date of Encounter: 06/11/17 Time of Encounter: 14:00 - Time Spent With Patient Total time spent is greater than 50% in coordination of care (as documented) at patient's floor/unit and/or counseling patient: GI History of Present Illness - Data of Consult Requesting Physician: Sandra Mayers MD - Consult Narrative History of present illness: Ms. Whyte is a 76 year old female - Constitutional Vitals: Temp Pulse Resp BP Pulse Ox 99.1 F 69 16 121/48 97 06/11/17 21:38 06/11/17 21:38 06/11/17 21:38 06/11/17 21:38 06/11/17 21:38 Results - Labs CBC & Chem 7: 06/11/17 00:54 06/11/17 00:54 Labs: Last Result ESR 1 mm/hr (0-15) 06/11/17 00:54 Calcium 8.0 mg/dL (8.6-10.8) L 06/11/17 00:54 Troponin I 0.00 ng/mL (0-0.03) 06/10/17 16:35 C-Reactive Protein 10 mg/L (Less than 5) H 06/11/17 00:54 Entire Visit Hgb 11.9 g/dL (11.5-15.4) D 06/11/17 00:54 Hct 35.1 % (35.3-44.9) L 06/11/17 00:54 PT 13.0 Seconds (9.4-12.1) H 06/11/17 00:54 Total Bilirubin 0.3 mg/dL (0.2-1.2) 06/10/17 16:35 AST 19 Units/L (5-34) 06/10/17 16:35 ALT 11 Units/L (0-55) 06/10/17 16:35 Lipase 79 Units/L (8-78) H 06/10/17 16:35 - ABG ABG results: PT/INR, D-dimer PT 13.0 Seconds (9.4-12.1) H 06/11/17 00:54 - Attending Attestation I examined this patient and my medical decision-making was reviewed with the Resident Physician. I agree with the documented findings, disposition and treatment plan as described except to the extent set forth below. Pt with ischemic colitis. Cont IV abs. No colonoscopy for now. If no abd pain in am then can start clear liquid. Will consider colon as out pt in 2 months. Consider ASA daily full strength.
--- NOTE | 2017-06-11 09:50 | General Surgery Consult Note ---
Date of Encounter: 06/11/17 Time of Encounter: 22:00 Assessment and Plan (1) Ischemic colitis Current Visit: Yes Status: Acute 76F with ischemic colitis with associated LGIB likley 2/2 to low flow state (as CT confirms colitis in watershed areas) from cardiac source (priceley bradycardia) ; currenlty non septic after resuscitation in ED - NPO - IVF - abx - cardiology consult: EKG, troponins, echo; may need PPM if she remain bradycardic and symptomatic - continue aggressive resuscitaiton, trend lactate - no acute surgery at present, serial exams (2) Bradycardia Current Visit: Yes Status: Acute eval by cardiology to assess the need for a pacemaker - likley cause of low flow state, unresponsiveness and subsequent colitis in watershed areas (3) Lactic acidosis Current Visit: Yes Status: Acute see above (4) Sepsis Current Visit: Yes Status: Acute see above Qualifiers: Sepsis type: sepsis due to unspecified organism Qualified Code(s): A41.9 - Sepsis, unspecified organism History of Present Illness Consult date: 06/10/17 Reason for consult: abdominal pain (with GI bleeding) History of present illness: 76F who presents with abdominal pain and rectal bleeding after a syncopal episode. The patient is unsure how long she was unconscious for, but it was reported that she was still unresponsive when the EMT/paramedics arrived. The patient states that her pain began before she became unresponsive. She has had several episodes similar to this which the patient relates to constipation and the need for a bowel movement. The patient had a bowel movement but no resolution of her pain. Upon arrival to the ED she had repeat episodes of blood stools and continued abdominal pain. Her lactate was up to 5.0. Surgery was consulted for possible intervention Past Med Surg Social Fam HX - Past Medical History Medical history: cancer, diabetes, hypertension, renal disease Psychiatric history: no psych history - Past Surgical History Surgical History: cancer surgery - Social History Smoking Status: Former smoker Alcohol use: none Drug use: none - Additional Family History Additional family history: non contributory Medications and Allergies Amlodipine Besylate 10 mg PO DAILY 06/10/17 [History] Aspirin Enteric Coated [Aspirin EC] 81 mg PO DAILY 06/10/17 [History] Atorvastatin [Lipitor] 40 mg PO HS 06/10/17 [History] Carvedilol [Carvedilol] 12.5 mg PO BID 06/10/17 [History] Glucosamine/D3/Boswellia Estephanie [Osteo Bi-Flex Tablet] 1 each PO DAILY 06/10/17 [ History] Lisinopril/Hydrochlorothiazide [Zestoretic 10-12.5 mg Tablet] 1 each PO DAILY [History] Omeprazole [PriLOSEC] 20 mg PO DAILY 06/10/17 [History] Repaglinide [Prandin] 1 mg PO BID 06/10/17 [History] Tizanidine HCl [Tizanidine HCl] 2 mg PO TID PRN 06/10/17 [History] Tramadol HCl [Ultram] 50 mg PO QID PRN 06/10/17 [History] 3 Allergy/AdvReac Type Severity Reaction Status Date / Time [facility]agli[facility] Allergy See Verified 06/10/17 18:22 Comments Review of Systems All systems PM: A 10-system review of systems was performed and is negative for pertinent findings except as documented above in the HPI. General Surgery Exam Initial Vital Signs Temp Pulse Resp BP Pulse Ox 97.5 F L 71 18 106/59 94 06/10/17 15:59 06/10/17 15:59 06/10/17 15:59 06/10/17 15:59 06/10/17 15:59 - General physical appearance well developed, well nourished, no distress - Eyes other (no scleral icterus), normal ocular movement - ENT normocephalic - Respiratory normal expansion, normal respiratory effort, clear to auscultation - Cardiovascular Cardiovascular exam: Present: bradycardia (heart rate in the high 40s, low 50s) - Abdomen Abdomen general surgery: Present: soft, tender (mildly tender in all quadrants) - Integumentary Integumentary general surgery: Present: warm and dry - Neurologic Present: CN 2-12 grossly intact - Psychiatric Psychiatric general surgery: Present: A&Ox3 Exam Initial Vital Signs Temp Pulse Resp BP Pulse Ox 97.5 F L 71 18 106/59 94 06/10/17 15:59 06/10/17 15:59 06/10/17 15:59 06/10/17 15:59 06/10/17 15:59 Results - Labs 06/11/17 00:54 06/11/17 00:54 Abnormal lab results WBC 16.1 K/mcL (4.3-11.1) H 06/11/17 00:54 Hct 35.1 % (35.3-44.9) L 06/11/17 00:54 Neutrophils # 14.3 K/mcL (1.6-8.9) H 06/11/17 00:54 PT 13.0 Seconds (9.4-12.1) H 06/11/17 00:54 Carbon Dioxide 18 mEq/L (19-29) L 06/11/17 00:54 BUN 31 mg/dL (7-20) H 06/11/17 00:54 Creatinine 1.30 mg/dL (0.57-1.11) H 06/11/17 00:54 Est GFR ( Amer) 48 (> 60) L 06/11/17 00:54 Est GFR (Non-Af Amer) 40 (> 60) L 06/11/17 00:54 Glucose 184 mg/dL (70-99) H 06/11/17 00:54 POC Glucose 147 (58-89) H 06/11/17 07:19 Hemoglobin A1c 5.7 % (-5.6) H 06/11/17 00:54 Calcium 8.0 mg/dL (8.6-10.8) L 06/11/17 00:54 Albumin 3.3 g/dL (3.5-5.0) L 06/10/17 16:35 Lipase 79 Units/L (8-78) H 06/10/17 16:35 Urine Clarity Cloudy (Clear) A 06/10/17 17:05 Urine Bilirubin Small (Negative) H 06/10/17 17:05 Ur Leukocyte Esterase Moderate (Negative) H 06/10/17 17:05 Diabetes panel 06/11/17 06/11/17 Range/Units 00:54 00:54 Sodium 138 (136-145) mEq/L Potassium 3.6 (3.5-4.5) mEq/L Chloride 109 (98-109) mEq/L Carbon Dioxide 18 L (19-29) mEq/L BUN 31 H (7-20) mg/dL Creatinine 1.30 H (0.57-1.11) mg/dL Glucose 184 H (70-99) mg/dL Hemoglobin A1c 5.7 H ( - 5.6) % Calcium 8.0 L (8.6-10.8) mg/dL Calcium panel 06/11/17 Range/Units 00:54 Calcium 8.0 L (8.6-10.8) mg/dL Pituitary panel 06/11/17 Range/Units 00:54 Sodium 138 (136-145) mEq/L Potassium 3.6 (3.5-4.5) mEq/L Chloride 109 (98-109) mEq/L Carbon Dioxide 18 L (19-29) mEq/L BUN 31 H (7-20) mg/dL Creatinine 1.30 H (0.57-1.11) mg/dL Glucose 184 H (70-99) mg/dL Calcium 8.0 L (8.6-10.8) mg/dL Adrenal panel 06/11/17 Range/Units 00:54 Sodium 138 (136-145) mEq/L Potassium 3.6 (3.5-4.5) mEq/L Chloride 109 (98-109) mEq/L Carbon Dioxide 18 L (19-29) mEq/L BUN 31 H (7-20) mg/dL Creatinine 1.30 H (0.57-1.11) mg/dL Glucose 184 H (70-99) mg/dL Calcium 8.0 L (8.6-10.8) mg/dL All other labs normal. - Imaging CT scan - abdomen: report reviewed, image reviewed (mural thickening involving the distal transverse colon, splenic flexure, descending colon and rectosigmoid colon consistent with a nonspecific colitis.) CT scan - pelvis: report reviewed, image reviewed (mural thickening involving the distal transverse colon, splenic flexure, descending colon and rectosigmoid colon consistent with a nonspecific colitis.) Consult Discharge Plan - Plan Referrals: NONE,PCP [Primary Care Provider] -
--- NOTE | 2017-06-11 10:58 | General Surgery Progress Note ---
Date of Encounter: 06/11/17 Time of Encounter: 09:30 - Assessment and Plan (1) Ischemic colitis Current Visit: Yes Status: Acute 76F with ischemic colitis with associated LGIB likley 2/2 to low flow state (as CT confirms colitis in watershed areas) from cardiac source (likley bradycardia) ; currenlty non septic after resuscitation in ED - NPO - IVF - abx - cardiology consult: EKG, troponins, echo; may need PPM if she remain bradycardic and symptomatic - continue aggressive resuscitaiton, trend lactate - no acute surgery at present, serial exams - trend H/H - GI on board; appreciate their recommendations; (2) Bradycardia Current Visit: Yes Status: Acute resolved; bradycardia of unknown etiology, but likely cause of low flow state and subsequent unresponsiveness and colitis - still recommend cardiology evaluation (3) Lactic acidosis Current Visit: Yes Status: Acute rsolved with resuscitation (4) Sepsis Current Visit: Yes Status: Acute trend wbc; patient still with colitis and LGIB Qualifiers: Sepsis type: sepsis due to unspecified organism Qualified Code(s): A41.9 - Sepsis, unspecified organism Subjective Patient reports: no new complaints, feels better, still having pain, pain is less Objective Vital Signs - Last 8 Hours Temp Pulse Resp BP Pulse Ox 06/11/17 09:19 80 20 102/42 98 06/11/17 08:30 75 20 129/56 98 06/11/17 08:00 81 06/11/17 07:46 97.6 F 06/11/17 06:00 72 24 135/52 97 06/11/17 05:00 66 22 130/51 97 06/11/17 04:28 98.1 F 06/11/17 04:00 64 20 124/44 97 06/11/17 03:00 64 20 137/59 96 Intake and Output 06/10/17 06/11/17 06/11/17 23:59 07:59 15:59 Intake Total 1000 / 1000 20 / 20 Output Total 500 / 500 Balance 500 / 500 20 / 20 Intake: IV Fluids 950 / 950 0.9 % Sodium Chloride 1,000 ML 800 / 800 @ 125 mls/hr IVC .Q8H [facility] Rx#: [id number] Flagyl Premix 500 MG/100 ML 500 100 / 100 mg In 100 ml @ 100 mls/hr IVPB Q6HR [facility] Rx#:[id number] Zosyn 3.375 GM In Dextrose 5% ( 50 / 50 ADD-[place]) 50 ML @ 50 mls/hr IVPB ONCE ONE Rx#:[id number] Oral 50 / 50 20 / 20 Output: Urine 500 / 500 Other: Percent of Meal Consumed 0% Stool Size Moderate Stool Consistency loose Stool Characteristics Mucoid Stool Color Bright Red Blood # Bowel Movements 1 Blood Glucose* 147 147 - General physical appearance well developed, well nourished, no distress - Respiratory normal expansion, normal respiratory effort - Cardiovascular Cardiovascular exam: Present: RRR - Abdomen Abdomen: Present: soft, non tender Hernia: none - Integumentary no rash - Neurologic CN 2-12 grossly intact - Psychiatric oriented to time, oriented to person, oriented to place - Labs 06/11/17 00:54 06/11/17 00:54 Diabetes panel 06/11/17 06/11/17 Range/Units 00:54 00:54 Sodium 138 (136-145) mEq/L Potassium 3.6 (3.5-4.5) mEq/L Chloride 109 (98-109) mEq/L Carbon Dioxide 18 L (19-29) mEq/L BUN 31 H (7-20) mg/dL Creatinine 1.30 H (0.57-1.11) mg/dL Glucose 184 H (70-99) mg/dL Hemoglobin A1c 5.7 H ( - 5.6) % Calcium 8.0 L (8.6-10.8) mg/dL Calcium panel 06/11/17 Range/Units 00:54 Calcium 8.0 L (8.6-10.8) mg/dL Pituitary panel 06/11/17 Range/Units 00:54 Sodium 138 (136-145) mEq/L Potassium 3.6 (3.5-4.5) mEq/L Chloride 109 (98-109) mEq/L Carbon Dioxide 18 L (19-29) mEq/L BUN 31 H (7-20) mg/dL Creatinine 1.30 H (0.57-1.11) mg/dL Glucose 184 H (70-99) mg/dL Calcium 8.0 L (8.6-10.8) mg/dL Adrenal panel 06/11/17 Range/Units 00:54 Sodium 138 (136-145) mEq/L Potassium 3.6 (3.5-4.5) mEq/L Chloride 109 (98-109) mEq/L Carbon Dioxide 18 L (19-29) mEq/L BUN 31 H (7-20) mg/dL Creatinine 1.30 H (0.57-1.11) mg/dL Glucose 184 H (70-99) mg/dL Calcium 8.0 L (8.6-10.8) mg/dL - VTE Documentation of Mechanical Device: Intermittent pneumatic compression device Consult Discharge Plan - Plan Referrals: NONE,PCP [Primary Care Provider] -
[2017-06-11] MEDS ORDERED: cefTRIAXone 1,000 MG in Water for inj. (sterile) 10 ML IVP SCH (11:40)
--- NOTE | 2017-06-11 13:08 | Electrocardiograph Report ---
[address] [place], [place] [address] Test Date: 2017-06-10 Pat Name: Leah Whyte Department: 102 Room: [facility] Gender: F Manager Paid: Shawna : 1940 Requested By: Louis Cobb Order Number: [id number] Reading MD: Ezra Duke MD Measurements Intervals [place] Rate: 64 P: 37 GA: 161 QRS: 17 QRSD: 80 T: 68 QT: 406 QTc: 415 Interpretive Statements SINUS RHYTHM BORDERLINE INFERIOR ST ELEVATION Electronically Signed On 06-11-2017 13:07:18 EST by Ezra Duke MD
--- NOTE | 2017-06-11 13:08 | Electrocardiograph Report ---
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
[2017-06-11 23:15] LABS: Basophils % 0.1 %; Eosinophils % 0.1 %; Immature Granulocytes % 0.6 % (0-4); Lymphocytes # 1.1 K/mcL (0.6-4.6); Lymphocytes % 7.8 %; Mean Corpuscular HGB Conc 34.3 g/dL (31.6-35.5); Mean Corpuscular Hemoglobin 30.5 pg (28.0-33.3); Mean Corpuscular Volume 88.9 fL (83.0-100.0); Mean Platelet Volume 9.8 fL (9.4-12.4); Monocytes % 7.1 %; Platelet Count 182 K/mcL (140-400); Red Blood Count 3.15 M/mcL (3.82-4.97); Red Cell Distribution Width 12.7 % (11.5-14.5); Segmented Neutrophils % 84.3 %
[2017-06-11 23:17] LABS: Hemoglobin 9.6 g/dL (11.5-15.4)
[2017-06-12] MEDS: MetroNIDAZOLE 500 MG/100 ML 500 MG/100 ML BAG IVPB SCH ×4 (00:17→23:27)
[2017-06-12 04:35] LABS: Basophils % 0.2 %; Eosinophils % 0.3 %; Hematocrit 27.5 % (35.3-44.9); Hemoglobin 9.5 g/dL (11.5-15.4); Immature Granulocytes % 0.5 % (0-4); Lymphocytes # 1.4 K/mcL (0.6-4.6); Lymphocytes % 10.4 %; Mean Corpuscular HGB Conc 34.5 g/dL (31.6-35.5); Mean Corpuscular Hemoglobin 30.3 pg (28.0-33.3); Mean Corpuscular Volume 87.6 fL (83.0-100.0); Mean Platelet Volume 9.9 fL (9.4-12.4); Monocytes # 0.9 K/mcL (0.0-1.3); Monocytes % 6.5 %; Neutrophils # 10.7 K/mcL (1.6-8.9); Platelet Count 173 K/mcL (140-400); Red Blood Count 3.14 M/mcL (3.82-4.97); Red Cell Distribution Width 12.8 % (11.5-14.5); Segmented Neutrophils % 82.1 %
[2017-06-12 05:07] LABS: Platelet Estimate Normal (Normal)
[2017-06-12] MEDS: cefTRIAXone 1,000 MG in Water for inj. (sterile) 10 ML IVP SCH (08:44)
[2017-06-12] MEDS: Insulin LISPRO 300 UNITS/3 ML VIAL SQ SCH ×3 (08:44→16:27)
--- NOTE | 2017-06-12 09:07 | Gastroenterology Progress Note ---
<Donaldo Card - Last Filed: 06/12/17 10:06> Date of Encounter: 06/12/17 Time of Encounter: 09:03 - Assessment and plan (1) Colitis Status: Acute Assessment and plan: 76-year-old type II diabetic with described history of recurrent hemorrhagic colitis was admitted with hematochezia, hypotension and syncopal episode. Significant laboratory work: Elevated WBC count up to 16.1, initial lactic acid 5.0 currently 1.4, presenting hemoglobin 13.5 down to 11.9 currently, BUN 31. CT of the abdomen demonstrates mural thickening involving the distal transverse colon, splenic flexure, descending colon and rectosigmoid colon consistent with nonspecific colitis. The patient presents with CT findings of colitis, hematochezia and left upper quadrant tenderness. She does complain of previous recurrent episodes over the last several years and once required hospitalization at [facility] one year ago. Of significance she also had vital demonstrating hypotension upon presentation and associated with bowel movements indicating vasovagal involvement. She also has CT findings correlating with vascular calcification. 06/12: Increased suspicion for ischemic colitis, patient currently stable without bloody bowel movements, lab abnormalities have resolved. Plan: - Follow up with gastroenterology for EGD and colonoscopy in 2 months - Smaller less heavy meals throughout the day, continue following diabetic diet (2) Diabetes mellitus type 2 in nonobese Status: Chronic Assessment and plan: Patient is a history of type 2 diabetes, patient states that her hemoglobin A1c was well controlled and she is currently not taking any injectable insulin. - Continue close glucose monitoring (3) Lactic acidosis Status: Acute Assessment and plan: Lactic acidosis is resolving, likely secondary to colitis versus ischemic colitis. Lactic acid level resolving. Plan as described above. - Time Spent With Patient Total time spent is greater than 50% in coordination of care (as documented) at patient's floor/unit and/or counseling patient: - Subjective Interval history: Mrs. Whyte has been seen and evaluated patient bedside this morning. She is alert awake oriented interactive in no acute distress. She feels back to her normal state of health and denies any bloody bowel movements, nausea vomiting or pain currently. She does complain of a little bit of abdominal discomfort but is tolerable at this time. After discussion regarding her imaging findings she is agreeable to outpatient colonoscopy/EGD in 2 months. Discussed eating smaller meals throughout the day and avoid large, heavy meals. - Constitutional Vitals: Temp Pulse Resp BP Pulse Ox 98.2 F 79 20 122/44 97 06/12/17 07:50 06/12/17 08:25 06/12/17 07:50 06/12/17 07:50 06/12/17 07:50 General appearance: Present: cooperative, A&O X 3, pleasant, no acute distress Exam: General: Patient alert, awake, oriented 3, interactive, in no acute distress HEENT: Normocephalic, atraumatic, pupils equal reactive to light, nasal cavity patent and open septum median position, oral mucosa moist, uvula midline, neck supple trachea midline no palpable lymphadenopathy, no thyromegaly. Chest: Symmetric bilateral correlating with respiratory effort, effort nonlabored. Cardiac: Regular rate and rhythm, positive S1 and S2. no bruits appreciated bilateral carotids, Radial pulses 2+ bilateral, posterior tibial and dorsal pedal pulses 1+ bilateral at best. Respiratory: Clear to auscultation all lung [place] Abdomen: Soft, mild diffuse tenderness, positive bowel sounds, no palpable masses appreciated on examination Extremities: Symmetric bilateral, bilateral lower extremities without erythema or edema patient moving all 4 extremities spontaneously. Neurologic: No focal deficits appreciated on examination. Face symmetric, muscle strength symmetric bilateral upper and lower extremities. Results - Labs CBC & Chem 7: 06/12/17 03:55 06/11/17 00:54 Labs: Last Result ESR 1 mm/hr (0-15) 06/11/17 00:54 Calcium 8.0 mg/dL (8.6-10.8) L 06/11/17 00:54 Troponin I 0.00 ng/mL (0-0.03) 06/10/17 16:35 C-Reactive Protein 10 mg/L (Less than 5) H 06/11/17 00:54 Entire Visit Hgb 9.5 g/dL (11.5-15.4) L 06/12/17 03:55 Hct 27.5 % (35.3-44.9) L 06/12/17 03:55 PT 13.0 Seconds (9.4-12.1) H 06/11/17 00:54 Total Bilirubin 0.3 mg/dL (0.2-1.2) 06/10/17 16:35 AST 19 Units/L (5-34) 06/10/17 16:35 ALT 11 Units/L (0-55) 06/10/17 16:35 Lipase 79 Units/L (8-78) H 06/10/17 16:35 - ABG ABG results: PT/INR, D-dimer PT 13.0 Seconds (9.4-12.1) H 06/11/17 00:54 - Impressions Impressions Echocardiogram 06/11/17 18:07 Impressions: LVEF 60-65%. Normal LV chamber size, wall thickness and function. Moderate left ventricular diastolic dysfunction. Normal right ventricular structure and function. Mild aortic stenosis. No evidence of pulmonary hypertension. Left Ventricular Wall Motion: Rest Echo Findings All wall segments showed normal motion. Findings: Study Quality * Technically adequate exam. ECG Findings * Normal sinus rhythm. Left Ventricle * LVEF 60-65%. * Normal LV chamber size, wall thickness and function. * Moderate left ventricular diastolic dysfunction. Right Ventricle * Normal right ventricular structure and function. Left Atrium * Mild to moderately dilated left atrium. Right Atrium * Normal right atrial size. Interatrial Septum * Interatrial septum not well evaluated. Aortic Valve * Aortic valve not well visualized. Number of leaflets not well visualized. * Mild calcifiction noted in some views. * No aortic regurgitation. * Mild aortic stenosis. Mitral Valve * Normal mitral valve structure and function. * No mitral regurgitation. * No mitral stenosis. Tricuspid Valve * Normal tricuspid valve structure and function. * Trace tricuspid regurgitation. * No evidence of pulmonary hypertension. Pulmonic Valve * Pulmonic valve is not well visualized. * No pulmonic regurgitation. Aorta * Normally sized aortic root. Pericardium * The pericardium appears normal. IVC * Normal IVC dimensions and inspiratory collapse. Pulmonary Artery * Normal visualized portions of the main pulmonary artery. - VTE Documentation of Mechanical Device: Intermittent pneumatic compression device Consult Discharge Plan - Plan Instructions: Ciprofloxacin (By mouth), Metronidazole (By mouth), Diabetes Mellitus Type 2 in Adults (DC), Chronic Hypertension (DC) Additional Instructions: F/up with for EGD/Colonoscopy in 3-4 weeks Referrals: Duglas Clark MD [Primary Care Provider] - 06/23/17 9:45 am Alicia Grayson MD [Partnered Physician] - (SENT WEB REQUEST ON 06-12-17 @ 2747) Prescriptions: Ciprofloxacin [Cipro] 500 mg PO BID #8 tablet metroNIDAZOLE [Flagyl] 500 mg PO TID #12 tablet <Alicia Grayson - Last Filed: 06/17/17 16:14> Date of Encounter: 06/12/17 Time of Encounter: 15:00 - Time Spent With Patient Total time spent is greater than 50% in coordination of care (as documented) at patient's floor/unit and/or counseling patient: - Constitutional Vitals: Temp Pulse Resp BP Pulse Ox 98.4 F 88 18 133/53 94 06/13/17 11:13 06/13/17 11:13 06/13/17 11:13 06/13/17 11:13 06/13/17 11:13 Results - Labs CBC & Chem 7: 06/13/17 03:35 06/13/17 03:35 Labs: Last Result ESR 1 mm/hr (0-15) 06/11/17 00:54 Calcium 8.4 mg/dL (8.6-10.8) L 06/13/17 03:35 Troponin I 0.00 ng/mL (0-0.03) 06/10/17 16:35 C-Reactive Protein 10 mg/L (Less than 5) H 06/11/17 00:54 Entire Visit Hgb 8.8 g/dL (11.5-15.4) L 06/13/17 03:35 Hct 25.8 % (35.3-44.9) L 06/13/17 03:35 PT 13.0 Seconds (9.4-12.1) H 06/11/17 00:54 Total Bilirubin 0.3 mg/dL (0.2-1.2) 06/10/17 16:35 AST 19 Units/L (5-34) 06/10/17 16:35 ALT 11 Units/L (0-55) 06/10/17 16:35 Lipase 79 Units/L (8-78) H 06/10/17 16:35 - ABG ABG results: PT/INR, D-dimer PT 13.0 Seconds (9.4-12.1) H 06/11/17 00:54 - Attending Attestation I examined this patient and my medical decision-making was reviewed with the Resident Physician. I agree with the documented findings, disposition and treatment plan as described except to the extent set forth below. Pt with ischemic colitis. Plan; IV abs, fluids, colon out pt 2 months
[2017-06-12 11:35] LABS: BUN/Creatinine Ratio 24 (6-26); Blood Urea Nitrogen 21 mg/dL (7-20); Calcium 8.7 mg/dL (8.6-10.8); Carbon Dioxide 25 mEq/L (19-29); Chloride 109 mEq/L (98-109); Glucose 111 mg/dL (70-99); Magnesium 1.1 mg/dL (1.6-2.6); Osmolality,Calculated 294 (280-300); Potassium 3.2 mEq/L (3.5-4.5); Sodium 140 mEq/L (136-145); eGFR For African Americans > 60 (> 60); eGFR For Non-African Americans > 60 (> 60)
[2017-06-12] MEDS ORDERED: Potassium Chloride Elixir 20 MEQ/15 ML UDC PO ONE (11:50)
--- NOTE | 2017-06-12 11:53 | Internal Med Progress Note ---
Date of Encounter: 06/12/17 Time of Encounter: 11:30 - Assessment and plan (1) JOSH (acute kidney injury) Current Visit: Yes Status: Resolved Assessment and plan: related to diarrhea and colitis; resolved with IV hydration. (2) Essential hypertension Current Visit: Yes Status: Chronic Assessment and plan: BP well-controlled; will resume home meds- beta marylu and ARB; (3) Colitis Current Visit: Yes Status: Acute Assessment and plan: likely ischemic colitis at this time, due to focal colitis in watershed area, lactic acidosis and bloody diarrhea; improving symptoms and resolved lactic acidosis; Surgery f/up noted, to f/up as outpatient; Continue IV Ciprofloxacin and Flagyl; stool studies could not be sent due to absence of diarrhea since admission; GI consult noted, recommend outpatient colonoscopy; start diet as tolerated; pain control with PRN PO Tramadol and IV Morphine; (4) Diabetes mellitus type 2 in nonobese Current Visit: Yes Status: Chronic Assessment and plan: Blood sugars noted to be well-controlled; continue Accucheck blood glucose monitoring with sliding scale insulin as needed; diabetic diet; HbA1C noted to be 5.7%; (5) Lactic acidosis Current Visit: Yes Status: Resolved (6) Bradycardia Current Visit: Yes Status: Resolved Assessment and plan: patient is only noted to have bradycardia for some time after arrival to the ER ; she does have h/o- previous syncopal episodes sometimes associated with diarrhea, vomiting ?vasovagal; continue Telemetry; she may need Holter monitor at discharge; will d/w Cardiology; - Subjective Interval history: Feels better with improving abdominal pain and diarrhea; had bloody bowel movement last night, none today so far; has been started on diet but not received her meal tray yet; - Constitutional Vitals: Temp Pulse Resp BP Pulse Ox 97.9 F 73 18 127/54 94 06/12/17 11:33 06/12/17 11:35 06/12/17 11:33 06/12/17 11:33 06/12/17 11:33 General appearance: Present: A&O X 3, answers questions appropriately - Respiratory Respiratory exam: Present: CTAB. Absent: accessory muscle use, rales, rhonchi, wheezes - Cardiovascular Cardiovascular exam: Present: RRR, +S1, +S2. Absent: diastolic murmur, gallop, rubs, systolic murmur - GI/Abdominal GI/Abdominal exam: Present: normal bowel sounds, soft (mild tenderness to deep palpation in LUQ), no peritoneal signs. Absent: distended, tenderness - Extremities Exam Extremities exam: Present: full ROM, warm, radial pulses palpable and symmetrical. Absent: calf tenderness, cyanotic, pedal edema - Neurological Exam Neurological exam: Present: CN II-XII intact, oriented X3, no focal deficits. Absent: pronater drift, facial droop, speech deficit Internal Medicine: Result - Labs CBC & Chem 7: 06/12/17 03:55 06/12/17 10:39 Labs: Short CBC 06/11/17 06/12/17 Range/Units 23:04 03:55 WBC 14.2 H 13.0 H (4.3-11.1) K/mcL Hgb 9.6 L D 9.5 L (11.5-15.4) g/dL Hct 28.0 L 27.5 L (35.3-44.9) % Plt Count 182 173 (140-400) K/mcL Neutrophils # 12.0 H 10.7 H (1.6-8.9) K/mcL BMP 06/12/17 10:39 Sodium 140 Potassium 3.2 L Chloride 109 Carbon Dioxide 25 BUN 21 H D Creatinine 0.88 Glucose 111 H Calcium 8.7 - ABG Interpretation ABG results: PT/INR, D-dimer PT 13.0 Seconds (9.4-12.1) H 06/11/17 00:54 - Impressions Impressions Echocardiogram 06/11/17 18:07 Impressions: LVEF 60-65%. Normal LV chamber size, wall thickness and function. Moderate left ventricular diastolic dysfunction. Normal right ventricular structure and function. Mild aortic stenosis. No evidence of pulmonary hypertension. Left Ventricular Wall Motion: Rest Echo Findings All wall segments showed normal motion. Findings: Study Quality * Technically adequate exam. ECG Findings * Normal sinus rhythm. Left Ventricle * LVEF 60-65%. * Normal LV chamber size, wall thickness and function. * Moderate left ventricular diastolic dysfunction. Right Ventricle * Normal right ventricular structure and function. Left Atrium * Mild to moderately dilated left atrium. Right Atrium * Normal right atrial size. Interatrial Septum * Interatrial septum not well evaluated. Aortic Valve * Aortic valve not well visualized. Number of leaflets not well visualized. * Mild calcifiction noted in some views. * No aortic regurgitation. * Mild aortic stenosis. Mitral Valve * Normal mitral valve structure and function. * No mitral regurgitation. * No mitral stenosis. Tricuspid Valve * Normal tricuspid valve structure and function. * Trace tricuspid regurgitation. * No evidence of pulmonary hypertension. Pulmonic Valve * Pulmonic valve is not well visualized. * No pulmonic regurgitation. Aorta * Normally sized aortic root. Pericardium * The pericardium appears normal. IVC * Normal IVC dimensions and inspiratory collapse. Pulmonary Artery * Normal visualized portions of the main pulmonary artery. - VTE Documentation of Mechanical Device: Intermittent pneumatic compression device Consult Discharge Plan - Plan Referrals: Duglas Clark MD [Non-Partnered Physician] - 06/23/17 9:45 am NONE,PCP [Primary Care Provider] - Alicia Grayson MD [Partnered Physician] - (SENT WEB REQUEST ON 06-12-17 @ 3039)
[2017-06-12] MEDS ORDERED: tiZANidine 4 MG TABLET PO PRN (14:40)
--- NOTE | 2017-06-12 15:04 | General Surgery Progress Note ---
Date of Encounter: 06/12/17 Time of Encounter: 12:40 - Assessment and Plan (1) Ischemic colitis Current Visit: Yes Status: Acute 76F with ischemic colitis with associated LGIB likley 2/2 to low flow state (as CT confirms colitis in watershed areas) from cardiac source (likley bradycardia) ; currenlty non septic after resuscitation in ED diet as tolerated - f/u cardiology - appreciate GI recs; call with further questions or concerns (2) Bradycardia Current Visit: Yes Status: Acute resolved; bradycardia of unknown etiology, but likely cause of low flow state and subsequent unresponsiveness and colitis - still recommend cardiology evaluation (3) Lactic acidosis Current Visit: Yes Status: Acute rsolved with resuscitation (4) Sepsis Current Visit: Yes Status: Acute trend wbc; patient still with colitis and LGIB Qualifiers: Sepsis type: sepsis due to unspecified organism Qualified Code(s): A41.9 - Sepsis, unspecified organism Subjective Patient reports: no new complaints, feels better, still having pain, pain is less, tolerating liquids well, flatus, bowel movement, blood in stool Objective Vital Signs - Last 8 Hours Temp Pulse Resp BP Pulse Ox 06/12/17 11:35 73 06/12/17 11:33 97.9 F 76 18 127/54 94 06/12/17 08:25 79 06/12/17 07:50 98.2 F 76 20 122/44 97 Intake and Output 06/11/17 06/12/17 06/12/17 23:59 07:59 15:59 Intake Total 300 / 300 100 / 100 1590 / 1590 Output Total 250 / 250 0 / 0 1250 / 1250 Balance 50 / 50 100 / 100 340 / 340 Intake: IV Fluids 100 / 100 100 / 100 1110 / 1110 Rocephin 1,000 MG In Water for inj. (sterile) 10 ML @ 300 mls/ hr IVP DAILY [facility] Rx#:[id number] Flagyl Premix 500 MG/100 ML 500 100 / 100 100 / 100 mg In 100 ml @ 100 mls/hr IVPB Q8HR [facility] Rx#:[id number] Oral 200 / 200 480 / 480 Output: Urine 250 / 250 0 / 0 1050 / 1050 Stool 200 / 200 Other: Meal Lunch Percent of Meal Consumed 30% 100% Stool Size Moderate Smear Large Stool Consistency liquid liquid Stool Characteristics Mucoid Stool Color Dark Red Blood Blood Tinged Brown # Bowel Movements 1 # Bowel Movement Diapers 1 1 Weight 69 kg Blood Glucose* 133 120 128 - General physical appearance well developed, well nourished, no distress - Respiratory normal expansion, normal respiratory effort - Cardiovascular Cardiovascular exam: Present: RRR - Abdomen Abdomen: Present: soft, non tender - Neurologic CN 2-12 grossly intact - Psychiatric oriented to time, oriented to person, oriented to place - Labs 06/12/17 03:55 06/12/17 10:39 Diabetes panel 06/12/17 Range/Units 10:39 Sodium 140 (136-145) mEq/L Potassium 3.2 L (3.5-4.5) mEq/L Chloride 109 (98-109) mEq/L Carbon Dioxide 25 (19-29) mEq/L BUN 21 H D (7-20) mg/dL Creatinine 0.88 (0.57-1.11) mg/dL Glucose 111 H (70-99) mg/dL Calcium 8.7 (8.6-10.8) mg/dL Calcium panel 06/12/17 Range/Units 10:39 Calcium 8.7 (8.6-10.8) mg/dL Pituitary panel 06/12/17 Range/Units 10:39 Sodium 140 (136-145) mEq/L Potassium 3.2 L (3.5-4.5) mEq/L Chloride 109 (98-109) mEq/L Carbon Dioxide 25 (19-29) mEq/L BUN 21 H D (7-20) mg/dL Creatinine 0.88 (0.57-1.11) mg/dL Glucose 111 H (70-99) mg/dL Calcium 8.7 (8.6-10.8) mg/dL Adrenal panel 06/12/17 Range/Units 10:39 Sodium 140 (136-145) mEq/L Potassium 3.2 L (3.5-4.5) mEq/L Chloride 109 (98-109) mEq/L Carbon Dioxide 25 (19-29) mEq/L BUN 21 H D (7-20) mg/dL Creatinine 0.88 (0.57-1.11) mg/dL Glucose 111 H (70-99) mg/dL Calcium 8.7 (8.6-10.8) mg/dL - VTE Documentation of Mechanical Device: Intermittent pneumatic compression device Consult Discharge Plan - Plan Referrals: Duglas Clark MD [Non-Partnered Physician] - 06/23/17 9:45 am NONE,PCP [Primary Care Provider] - Alicia Grayson MD [Partnered Physician] - (SENT WEB REQUEST ON 06-12-17 @ 1996)
[2017-06-12] MEDS ORDERED: traMADol 50 MG TABLET PO PRN (15:07)
[2017-06-12] MEDS ORDERED: Insulin LISPRO 300 UNITS/3 ML VIAL SQ SCH (21:00)
[2017-06-12] MEDS: Magnesium Oxide 400 MG TABLET PO SCH (21:15)
[2017-06-13 04:01] LABS: Basophils % 0.3 %; Eosinophils # 0.2 K/mcL (0.0-0.6); Eosinophils % 2.5 %; Hematocrit 25.8 % (35.3-44.9); Hemoglobin 8.8 g/dL (11.5-15.4); Immature Granulocytes % 0.9 % (0-4); Lymphocytes % 22.4 %; Mean Corpuscular HGB Conc 34.1 g/dL (31.6-35.5); Mean Corpuscular Hemoglobin 30.2 pg (28.0-33.3); Mean Corpuscular Volume 88.7 fL (83.0-100.0); Mean Platelet Volume 9.8 fL (9.4-12.4); Monocytes # 0.6 K/mcL (0.0-1.3); Monocytes % 6.7 %; Neutrophils # 5.9 K/mcL (1.6-8.9); Platelet Count 164 K/mcL (140-400); Red Blood Count 2.91 M/mcL (3.82-4.97); Red Cell Distribution Width 12.7 % (11.5-14.5); Segmented Neutrophils % 67.2 %
[2017-06-13 04:16] LABS: BUN/Creatinine Ratio 21 (6-26); Blood Urea Nitrogen 17 mg/dL (7-20); Calcium 8.4 mg/dL (8.6-10.8); Carbon Dioxide 23 mEq/L (19-29); Chloride 112 mEq/L (98-109); Glucose 109 mg/dL (70-99); Magnesium 1.4 mg/dL (1.6-2.6); Osmolality,Calculated 290 (280-300); Potassium 3.5 mEq/L (3.5-4.5); Sodium 139 mEq/L (136-145); eGFR For African Americans > 60 (> 60); eGFR For Non-African Americans > 60 (> 60)
[2017-06-13] MEDS: Insulin LISPRO 300 UNITS/3 ML VIAL SQ SCH ×2 (08:27→12:47)
[2017-06-13] MEDS: cefTRIAXone 1,000 MG in Water for inj. (sterile) 10 ML IVP SCH (08:33)
[2017-06-13] MEDS: MetroNIDAZOLE 500 MG/100 ML 500 MG/100 ML BAG IVPB SCH (08:33)
[2017-06-13] MEDS ORDERED: Aspirin Enteric Coated 81 MG Tablet PO SCH (09:00)
[2017-06-13] MEDS ORDERED: amLODIPine 5 MG TABLET PO SCH (09:00)
[2017-06-13] MEDS: Magnesium Oxide 400 MG TABLET PO SCH (09:50)
[2017-06-13 11:35] VITALS: BP 133/53
--- NOTE | 2017-06-13 15:02 | Discharge Summary ---
Date of Encounter: 06/13/17 Time of Encounter: 12:30 - Discharge Diagnosis (1) JOSH (acute kidney injury) Priority: Primary Status: Resolved (2) Essential hypertension Priority: Secondary Status: Chronic (3) Colitis Priority: Primary Status: Acute (4) Diabetes mellitus type 2 in nonobese Priority: Secondary Status: Chronic (5) Lactic acidosis Priority: Primary Status: Resolved (6) Bradycardia Priority: Primary Status: Resolved - Discharge Medications Prescriptions: Ciprofloxacin [Cipro] 500 mg PO BID #8 tablet metroNIDAZOLE [Flagyl] 500 mg PO TID #12 tablet Home Medications: Amlodipine Besylate 10 mg PO DAILY 06/10/17 [History] Aspirin Enteric Coated [Aspirin EC] 81 mg PO DAILY 06/10/17 [History] Atorvastatin [Lipitor] 40 mg PO HS 06/10/17 [History] Carvedilol 12.5 mg PO BID 06/10/17 [History] Glucosamine/D3/Boswellia Estephanie [Osteo Bi-Flex Tablet] 1 each PO DAILY 06/10/17 [ History] Lisinopril/Hydrochlorothiazide [Zestoretic 10-12.5 mg Tablet] 1 each PO DAILY [History] Omeprazole [PriLOSEC] 20 mg PO DAILY 06/10/17 [History] Repaglinide [Prandin] 1 mg PO BID 06/10/17 [History] Tizanidine HCl 2 mg PO TID PRN 06/10/17 [History] Tramadol HCl [Ultram] 50 mg PO QID PRN 06/10/17 [History] Ciprofloxacin [Cipro] 500 mg PO BID #8 tablet 06/13/17 [Rx] metroNIDAZOLE [Flagyl] 500 mg PO TID #12 tablet 06/13/17 [Rx] Allergies/Adverse Reactions: 3 Allergy/AdvReac Type Severity Reaction Status Date / Time sitagliptin [From Juluvia] Allergy See Verified 06/10/17 18:22 Comments Procedures/tests Complete & Pending: Procedures Performed prior 72 hours Category Date Time Status US biopsy thyroid [US] Routine Exams 06/13/17 Ordered US thyroid [US] Routine Exams 06/12/17 18:30 Draft ECG 12 lead ECG [ECG] Routine Y 06/10/17 16:21 Completed EV echocardiogram Routine Y 06/11/17 18:07 Completed Date of admission: 06/10/17 23:46 Primary care physician: Duglas Clark MD Discharging clinician: Sandra Mayers Anticipated date of discharge: 06/13/17 - Patient Status Disposition: Home, Self-Care Condition: Fair Functional capacity at discharge: independent ambulation Overall status at discharge: patient is progressing back to baseline - Ambulatory Orders Ambulatory Orders: Consult to Interventional Radiology [CONS] Time Frame: 2 Weeks, Facility: [facility], Location: Interventional Radiology - Discharge Instructions Instructions: Ciprofloxacin (By mouth), Metronidazole (By mouth), Diabetes Mellitus Type 2 in Adults (DC), Chronic Hypertension (DC) Follow Up With: Duglas Clark MD [Primary Care Provider] - 06/23/17 9:45 am Alicia Grayson MD [Partnered Physician] - (SENT WEB REQUEST ON 06-12-17 @ 6658) Additional Instructions: F/up with for EGD/Colonoscopy in 3-4 weeks - Diet and Activity Activity: resume usual activities as tolerated Diet: diabetic diet, low salt diet Hospital course: Ms. Whyte is a 76 year old female with the above medical problems who was admitted with diarrhea, abdominal pain and syncopal episode. CT abdomen/pelvis showed significant atherosclerotic disease in the abdominal aorta, colitis from distal transverse to sigmoid colon, likely ischemic colitis. She was noted to have mild leukocytosis and lactic acidosis at admission. She was started on aggressive IV hydration, IV antibiotics-ciprofloxacin and Flagyl. Surgery was consulted who recommended no acute intervention. GI was consulted and recommended outpatient EGD/colonoscopy for further evaluation of colitis, which is likely ischemic colitis. Patient was noted to have a brief period of sinus bradycardia soon after admission but had no further episodes on telemetry. Holter monitoring was offered at discharge but patient declined and will follow up with primary care provider. At this time, syncopal episodes or likely thought to be vasovagal as they happened in association to constipation and/or diarrhea. CT chest showed incidental finding of left thyroid nodule. Ultrasound thyroid showed left thyroid dominant nodule, recommend FNAC. This is being scheduled for outpatient and patient will follow with surgery clinic. She is otherwise medically stable for discharge. - Time Spent with Patient Total time spent providing and/or coordinating discharge services: Greater than 30 minutes (45 min) - Constitutional Vitals: Temp Pulse Resp BP Pulse Ox 98.4 F 88 18 133/53 94 11/17/17 11:13 06/13/17 11:13 06/13/17 11:13 06/13/17 11:13 06/13/17 11:13 General appearance: Present: A&O X 3, answers questions appropriately - Respiratory Respiratory exam: Present: CTAB. Absent: accessory muscle use, rales, rhonchi, wheezes - Cardiovascular Cardiovascular exam: Present: RRR, +S1, +S2. Absent: diastolic murmur, gallop, rubs, systolic murmur - VTE Documentation of Mechanical Device: Intermittent pneumatic compression device
== END 2017-06-13 17:44 | disposition home or self-care (01) | DRG 872 ==
LOC: EMEROO 15:57 → ICNU 23:46 → SUATTDRO 23:46 → ICNU 06-11 00:17 → 2NNU 06-11 21:21
PROVIDERS: ADMIT Internal Medicine; ATTEND Internal Medicine